=== PATIENT | male | born 1945 | race African-American/Black ===

== ENCOUNTER 2017-07-18 15:00 | Inpatient (IN) | payer MEDICARE, MEDICAID ==
[~2017-07-18] VITALS: Ht 177.8 cm; Wt 65.8 kg
[2017-07-18 16:08] LABS: BASOPHILS % 0.1 % (0.0-2.0); EOSINOPHILS % 0.1 % (0.0-5.0); HEMATOCRIT. 42.8 % (42.0-52.0); HEMOGLOBIN. 14.2 g/dL (14.0-18.0); LYMPHOCYTES % 26.2 % (20.0-50.0); MEAN CORPUSCULAR HEMOGLOBIN 29.7 pg (28.0-32.0); MEAN CORPUSCULAR VOLUME 89.5 fL (80.0-94.0); MEAN PLATELET VOLUME 7.5 fl (7.4-10.4); MONOCYTES % 19.2 % (2.0-8.0); NEUTROPHILS % 54.4 % (40.0-76.0); PLATELET 178 x1000/uL (130-400); RED BLOOD CELL COUNT 4.78 mill/uL (4.7-6.1); RED CELL DISTRIBUTION WIDTH 14.5 % (11.6-14.6)
[2017-07-18 16:26] LABS: CARBON DIOXIDE 30 mEq/L (21-32); CHLORIDE 102 mEq/L (98-107); ETHANOL BLOOD < 10 mg/dL; TROPONIN I 0.02 ng/mL (0.00-0.04)
[2017-07-18 17:48] LABS: CLARITY URINE CLEAR (CLEAR); COLOR URINE YELLOW (YELLOW); KETONES URINE NEGATIVE (NEGATIVE); LEUKOCYTE ESTERASE URINE NEGATIVE (NEGATIVE); NITRITE URINE NEGATIVE (NEGATIVE); OCCULT BLOOD URINE TRACE (NEGATIVE); PH URINE 5.5 (4.5-8.0); PROTEIN URINE 1+ (NEGATIVE); SPECIFIC GRAVITY URINE 1.019 (1.005-1.030)
[2017-07-18 18:31] LABS: *AMPHETAMINES SCREEN URINE NEGATIVE (NEGATIVE); *BARBITURATES SCREEN URINE NEGATIVE (NEGATIVE); *BENZODIAZEPINES SCREEN URINE NEGATIVE (NEGATIVE); *COCAINE SCREEN URINE NEGATIVE (NEGATIVE); CANNABINOID URINE SCREEN NEGATIVE (NEGATIVE); METHADONE URINE SCREEN NEGATIVE (NEGATIVE); OPIATES URINE SCREEN NEGATIVE (NEGATIVE); PHENCYCLIDINE URINE SCREEN NEGATIVE (NEGATIVE)
[2017-07-18] MEDS ORDERED: AZITHROMYCIN 500 MG in DEXT 5% WATER 250 ML IV SCH (20:00)
[2017-07-18] MEDS ORDERED: CEFTRIAXONE 1 G PREMIX 50 ML IV ONE (20:00)
[2017-07-18] MEDS ORDERED: HYDROCODONE/ACETAMINOPHEN 5/325MG TABLET PO PRN (20:30)
[2017-07-18] MEDS ORDERED: ONDANSETRON HCL 4MG/2ML VIAL IV PRN (20:30)
[2017-07-18] MEDS ORDERED: LORAZEPAM 0.5MG TABLET PO PRN (20:30)
[2017-07-18] MEDS ORDERED: DIPHENHYDRAMINE 50MG/ML VIAL IV PRN (20:30)
[2017-07-18] MEDS ORDERED: GUAIFENESIN 200MG/10ML SUGAR FREE UDC PO PRN (20:30)
[2017-07-18] MEDS ORDERED: IPRATROPIUM/ALBUTEROL 0.5-3(2.5)MG/3ML NEB INH PRN (20:30)
[2017-07-18] MEDS ORDERED: DOCUSATE SODIUM 100MG CAPSULE PO PRN (20:30)
[2017-07-18] MEDS ORDERED: ACETAMINOPHEN 325MG TABLET PO PRN (20:30)
[2017-07-18] MEDS ORDERED: MAGNESIUM/ALUMINUM HYDROXIDE/SIMETHICONE 30ML UDC PO PRN (20:30)
[2017-07-18] MEDS ORDERED: CLONIDINE 0.1MG TABLET PO PRN (20:30)
[2017-07-18 21:01] LABS: CHLORIDE 103 mEq/L (98-107)
[2017-07-18 21:07] LABS: CARBON DIOXIDE 29 mEq/L (21-32)
[2017-07-18] MEDS ORDERED: NA PHOS,M-B/NA PHOS,DI-BA ENEMA 118ML PR PRN (23:00)
[2017-07-18] MEDS ORDERED: HYDROMORPHONE HCL/PF 2MG/ML CPJ IV PRN (23:00)
[2017-07-19] MEDS ORDERED: CEFTRIAXONE 1 G PREMIX 50 ML IV SCH (04:00)
[2017-07-19] MEDS: SODIUM CHLORIDE 0.45% 1,000 ML IV SCH (04:03)
[2017-07-19] MEDS ORDERED: AZITHROMYCIN 500 MG in DEXT 5% WATER 250 ML IV SCH (05:00)
[2017-07-19 05:21] LABS: HEMOGLOBIN. 14.1 g/dL (14.0-18.0); MEAN CORPUSCULAR HEMOGLOBIN 30.7 pg (28.0-32.0); MEAN CORPUSCULAR VOLUME 89.5 fL (80.0-94.0); MEAN PLATELET VOLUME 7.6 fl (7.4-10.4); PLATELET 169 x1000/uL (130-400); RED BLOOD CELL COUNT 4.59 mill/uL (4.7-6.1)
[2017-07-19 05:23] LABS: CARBON DIOXIDE 32 mEq/L (21-32); HDL CHOLESTEROL 25 mg/dL (40-59); LDL CHOLESTEROL 71 mg/dL (5-100)
[2017-07-19 05:40] LABS: CHLORIDE 103 mEq/L (98-107)
[2017-07-19 08:20] LABS: PLATELET ESTIMATE NORMAL
[2017-07-19 11:28] VITALS: BP 125/73
[2017-07-19] MEDS: ASPIRIN 81MG EC TABLET PO SCH (11:46)
[2017-07-19 12:00] VITALS: BP 139/76
[2017-07-19] MEDS ORDERED: INFLUENZA VIRUS VACCINE 0.5ML SYR IM ONE (13:00)
[2017-07-19] MEDS ORDERED: PNEUMOCOCCAL 23-VAL P-SAC VAC 0.5 ML IM ONE (13:00)
[2017-07-19] MEDS ORDERED: ASPI-1159 PO (13:22)
[2017-07-19] MEDS ORDERED: ENAL20TA PO (13:41)
[2017-07-19] MEDS ORDERED: OLAN10TA19 PO (13:41)
[2017-07-19] MEDS ORDERED: HALO5TAB PO (13:41)
[2017-07-19 16:00] VITALS: BP 116/66
[2017-07-19] MEDS ORDERED: HALOPERIDOL 5MG TABLET PO SCH (17:00)
[2017-07-19] MEDS: HALOPERIDOL 5MG TABLET PO SCH (17:50)
[2017-07-19] MEDS: OLANZAPINE 10MG TABLET PO SCH (17:50)
[2017-07-19 20:00] VITALS: BP 135/82
[2017-07-20] VITALS: BP 135/79
[2017-07-20] MEDS: SODIUM CHLORIDE 0.45% 1,000 ML IV SCH (00:21)
[2017-07-20 04:00] VITALS: BP 106/62
[2017-07-20] MEDS ORDERED: AZITHROMYCIN 500 MG in DEXT 5% WATER 250 ML IV SCH (05:00)
[2017-07-20 07:42] VITALS: BP 117/71
[2017-07-20] MEDS: HALOPERIDOL 5MG TABLET PO SCH (08:45)
[2017-07-20] MEDS: OLANZAPINE 10MG TABLET PO SCH (08:45)
[2017-07-20] MEDS: ASPIRIN 81MG EC TABLET PO SCH (08:46)
[2017-07-20] MEDS ORDERED: MEDICATION NOT ON FORMULARY EA (Enalapril Maleate 1 TAB) PO SCH (09:00)
[2017-07-20] MEDS ORDERED: ASPIRIN 81MG EC TABLET PO SCH (09:00)
[2017-07-20] MEDS ORDERED: ENALAPRIL 10MG TABLET PO SCH (09:00)
[2017-07-20] MEDS ORDERED: ENOXAPARIN 40MG/0.4ML SYR SUBCUT SCH (11:00)
[2017-07-20 12:00] VITALS: BP 110/60
[2017-07-20 15:47] VITALS: BP 134/76
[2017-07-20 15:53] VITALS: BP 134/76
== END 2017-07-20 17:05 | disposition home or self-care (01) | DRG 177 ==
LOC: ER 15:31 → 8WST 21:53 → ENRESERV 07-19 07:00
PROVIDERS: ADMIT Internal Medicine; ATTEND Internal Medicine
DX: J69.0 Pneumonitis due to inhalation of food and vomit (principal); G93.41 Metabolic encephalopathy; E46 Unspecified protein-calorie malnutrition; E11.9 Type 2 diabetes mellitus without complications; R65.10 Systemic inflammatory response syndrome (SIRS) of non-infectious origin without acute organ dysfunction; E86.0 Dehydration; F17.200 Nicotine dependence, unspecified, uncomplicated; I10 Essential (primary) hypertension; Z79.82 Long term (current) use of aspirin; Z79.899 Other long term (current) drug therapy; Z86.73 Personal history of transient ischemic attack (TIA), and cerebral infarction without residual deficits; Z68.20 Body mass index [BMI] 20.0-20.9, adult
CPT/HCPCS: 36415; 70450; 71010; 80048; 80053; 80061; 80305; 81001; 82962; 83880; 84443; 84484; 85025; 86850; 86900; 87040; 90686; 90732; 97162; 99285; G0482; J0456; J0696; J1630; J1650; J7060

== ENCOUNTER 2023-02-21 12:49 | Emergency (ER) | payer MEDICARE, MEDICAID ==
[~2023-02-21] VITALS: Ht 175.3 cm; Wt 77.0 kg
[~2023-02-21 12:49] MED LIST: ALBU6.7H3 INH; AMLO5TAB88 PO; ASPI-1497 PO; ENAL-79 PO; FURO40TA5 PO; HALO5TAB PO; LIP40 PO; NITR100C11 PO; OLAN10TA72 PO; SPIR25TA PO
[2023-02-21 12:51] VITALS: O2SAT 100
[2023-02-21] MEDS ORDERED: ACETAMINOPHEN 325MG TABLET PO STA (13:53)
[2023-02-21] MEDS ORDERED: FUROSEMIDE 40MG TABLET PO ONE (14:15)
[2023-02-21 14:36] LABS: BASOPHILS % 0.2 % (0.0-2.0); EOSINOPHILS % 1.7 % (0.0-5.0); HEMATOCRIT. 31.9 % (42.0-52.0); HEMOGLOBIN. 10.2 g/dL (14.0-18.0); LYMPHOCYTES % 8.8 % (20.0-50.0); MEAN CORPUSCULAR VOLUME 81.4 fL (80.0-94.0); MEAN PLATELET VOLUME 6.9 fl (7.4-10.4); MONOCYTES % 12.2 % (2.0-8.0); NEUTROPHILS % 77.1 % (40.0-76.0); PLATELET 274 x1000/uL (130-400); RED BLOOD CELL COUNT 3.92 mill/uL (4.7-6.1); RED CELL DISTRIBUTION WIDTH 14.9 % (11.6-14.6)
[2023-02-21 14:41] LABS: CHLORIDE 97 mEq/L (98-107)
[2023-02-21 17:35] VITALS: TEMP 98.8
[2023-02-21 18:00] VITALS: BP 138/70; PULSE 80; RESP 20
== END 2023-02-21 19:03 | disposition home or self-care (01) ==
LOC: ER 12:49
DX: R07.89 Other chest pain (principal); I11.0 Hypertensive heart disease with heart failure; I50.9 Heart failure, unspecified; J44.9 Chronic obstructive pulmonary disease, unspecified; E11.9 Type 2 diabetes mellitus without complications; F12.10 Cannabis abuse, uncomplicated; Z79.899 Other long term (current) drug therapy
CPT/HCPCS: 36415; 71045; 80053; 84484; 85025; 93005; 99285

== ENCOUNTER 2023-03-03 00:25 | Inpatient (IN) | payer MEDICARE, MEDICAID ==
[~2023-03-03] VITALS: Ht 177.8 cm; Wt 56.2 kg
[2023-03-03 01:56] LABS: BASOPHILS % 0.8 % (0.0-2.0); EOSINOPHILS % 1.9 % (0.0-5.0); HEMATOCRIT. 37.6 % (42.0-52.0); HEMOGLOBIN. 12.1 g/dL (14.0-18.0); LYMPHOCYTES % 17.4 % (20.0-50.0); MEAN CORPUSCULAR HEMOGLOBIN 25.9 pg (28.0-32.0); MEAN CORPUSCULAR VOLUME 80.8 fL (80.0-94.0); MEAN PLATELET VOLUME 7.3 fl (7.4-10.4); MONOCYTES % 9.6 % (2.0-8.0); NEUTROPHILS % 70.3 % (40.0-76.0); PLATELET 296 x1000/uL (130-400); RED BLOOD CELL COUNT 4.66 mill/uL (4.7-6.1); RED CELL DISTRIBUTION WIDTH 15.9 % (11.6-14.6)
[2023-03-03 02:10] LABS: CHLORIDE 94 mEq/L (98-107)
[2023-03-03] MEDS ORDERED: HYDROCODONE/ACETAMINOPHEN 5/325MG TABLET PO PRN (05:30)
[2023-03-03] MEDS ORDERED: MAGNESIUM/ALUMINUM HYDROXIDE/SIMETHICONE 30ML UDC PO PRN (05:30)
[2023-03-03] MEDS ORDERED: ONDANSETRON HCL 4MG/2ML INJ IV PRN (05:30)
[2023-03-03] MEDS ORDERED: CLONIDINE 0.1MG TABLET PO PRN (05:30)
[2023-03-03] MEDS ORDERED: IPRATROPIUM/ALBUTEROL 0.5-3(2.5)MG/3ML NEB HHN PRN (05:30)
[2023-03-03] MEDS ORDERED: DOCUSATE SODIUM 100MG CAPSULE PO PRN (05:30)
[2023-03-03] MEDS ORDERED: GUAIFENESIN 200MG/10ML SUGAR FREE UDC PO PRN (05:30)
[2023-03-03] MEDS ORDERED: ACETAMINOPHEN 325MG TABLET PO PRN (05:30)
[2023-03-03] MEDS ORDERED: NA PHOS,M-B/NA PHOS,DI-BA ENEMA 118ML PR PRN (05:30)
[2023-03-03] MEDS ORDERED: HALOPERIDOL LACTATE 5MG/ML VIAL IM PRN (05:45)
[2023-03-03] MEDS ORDERED: NITROGLYCERIN 0.4MG TABLET SL SL PRN (06:15)
[2023-03-03] MEDS: SODIUM CHLORIDE 0.9% 1,000 ML IV SCH ×3 (06:42→21:05)
[2023-03-03 06:56] LABS: T4 FREE 1.05 ng/dL (0.76-1.46)
[2023-03-03 07:37] LABS: VITAMIN B12 SERUM 482 pg/mL (211-911)
[2023-03-03 07:54] LABS: HEPATITIS B SURFACE ANTIGEN NEGATIVE
[2023-03-03] MEDS: PANTOPRAZOLE 40MG DR TABLET PO SCH (08:41)
[2023-03-03 08:55] LABS: CLARITY URINE CLOUDY (CLEAR); COLOR URINE YELLOW (YELLOW); KETONES URINE NEGATIVE (NEGATIVE); LEUKOCYTE ESTERASE URINE NEGATIVE (NEGATIVE); NITRITE URINE NEGATIVE (NEGATIVE); OCCULT BLOOD URINE NEGATIVE (NEGATIVE); PROTEIN URINE NEGATIVE (NEGATIVE); SPECIFIC GRAVITY URINE 1.008 (1.005-1.030); UROBILINOGEN URINE 0.2 E.U./dL (0.2-1.0)
[2023-03-03] MEDS: ASPIRIN 81MG EC TABLET PO SCH (10:46)
[2023-03-03] MEDS: OLANZAPINE 10MG TABLET PO SCH (10:46)
[2023-03-03 11:08] VITALS: BP 120/59; PULSE 92; RESP 18; TEMP 97.7
[2023-03-03 12:00] VITALS: BP 120/59; PULSE 92; RESP 18; TEMP 97.7
[2023-03-03] MEDS: ENOXAPARIN 30MG/0.3ML SYR SUBCUT SCH (12:44)
[2023-03-03 13:20] LABS: *AMPHETAMINES SCREEN URINE NEGATIVE (NEGATIVE); *BARBITURATES SCREEN URINE NEGATIVE (NEGATIVE); *BENZODIAZEPINES SCREEN URINE NEGATIVE (NEGATIVE); *COCAINE SCREEN URINE NEGATIVE (NEGATIVE); CANNABINOID URINE SCREEN NEGATIVE (NEGATIVE); METHADONE URINE SCREEN NEGATIVE (NEGATIVE); OPIATES URINE SCREEN NEGATIVE (NEGATIVE); PHENCYCLIDINE URINE SCREEN NEGATIVE (NEGATIVE)
[2023-03-03 15:31] LABS: CLARITY URINE CLEAR (CLEAR); COLOR URINE YELLOW (YELLOW); KETONES URINE NEGATIVE (NEGATIVE); LEUKOCYTE ESTERASE URINE NEGATIVE (NEGATIVE); NITRITE URINE NEGATIVE (NEGATIVE); OCCULT BLOOD URINE NEGATIVE (NEGATIVE); PH URINE 6.5 (4.5-8.0); PROTEIN URINE NEGATIVE (NEGATIVE); SPECIFIC GRAVITY URINE 1.009 (1.005-1.030); UROBILINOGEN URINE 0.2 E.U./dL (0.2-1.0)
[2023-03-03 20:00] VITALS: BP 122/72; PULSE 89; RESP 20; TEMP 97.4
[2023-03-03] MEDS: ATORVASTATIN CALCIUM 40MG TABLET PO SCH (21:04)
[2023-03-04] VITALS: BP 124/72; PULSE 82; RESP 20; TEMP 98
[2023-03-04] MEDS: SODIUM CHLORIDE 0.9% 1,000 ML IV SCH (03:42)
[2023-03-04 04:00] VITALS: BP 92/50; PULSE 89; RESP 20; TEMP 97.7
[2023-03-04] MEDS: PANTOPRAZOLE 40MG DR TABLET PO SCH ×2 (06:17→06:20)
[2023-03-04 06:57] LABS: HEMATOCRIT 30.9 % (42.0-52.0); HEMOGLOBIN 10.3 g/dL (14.0-18.0); MEAN CORPUSCULAR HEMOGLOBIN 26.8 pg (28.0-32.0); MEAN CORPUSCULAR VOLUME 80.7 fL (80.0-94.0); PLATELET 236 x1000/uL (130-400); RED BLOOD CELL COUNT 3.83 mill/uL (4.7-6.1); RED CELL DISTRIBUTION WIDTH 15.8 % (11.6-14.6)
[2023-03-04 08:00] VITALS: BP 112/66; PULSE 89; RESP 18; TEMP 98.5
[2023-03-04] MEDS: ASPIRIN 81MG EC TABLET PO SCH (09:24)
[2023-03-04] MEDS: OLANZAPINE 10MG TABLET PO SCH (09:24)
[2023-03-04] MEDS: ENOXAPARIN 30MG/0.3ML SYR SUBCUT SCH (11:48)
[2023-03-04 12:00] VITALS: BP 96/59; PULSE 90; RESP 18; TEMP 98.1
[2023-03-04 16:00] VITALS: BP 109/63; PULSE 92; RESP 18; TEMP 97.9
[2023-03-04] MEDS ORDERED: NALOXONE HCL 0.4MG/ML VIAL IV PRN (20:30)
[2023-03-04 20:45] VITALS: BP 114/62; PULSE 86; RESP 18; TEMP 99.1
[2023-03-04] MEDS: ATORVASTATIN CALCIUM 40MG TABLET PO SCH (21:00)
[2023-03-05 00:31] VITALS: BP 116/65; PULSE 89; RESP 18; TEMP 97.9
[2023-03-05 04:31] VITALS: BP 108/50; PULSE 86; RESP 18; TEMP 98.7
[2023-03-05] MEDS: SODIUM CHLORIDE 0.9% 1,000 ML IV SCH (04:47)
[2023-03-05 08:00] VITALS: BP 122/62; PULSE 79; RESP 18; TEMP 97.6
[2023-03-05] MEDS: PANTOPRAZOLE 40MG DR TABLET PO SCH (08:54)
[2023-03-05] MEDS: ASPIRIN 81MG EC TABLET PO SCH (08:54)
[2023-03-05] MEDS: OLANZAPINE 10MG TABLET PO SCH (08:55)
[2023-03-05 11:27] VITALS: BP 122/62; PULSE 79; TEMP 97.7; O2SAT 97
[2023-03-05 12:00] VITALS: BP 119/64; PULSE 76; RESP 20; TEMP 97.7
== END 2023-03-05 16:25 | disposition home or self-care (01) | DRG 311 ==
LOC: ER 00:25 → 8WST 06:47 → 6EST 03-05 05:28
PROVIDERS: ADMIT Hospitalist; ATTEND Hospitalist
DX: I20.8 Other forms of angina pectoris (principal); I13.0 Hypertensive heart and chronic kidney disease with heart failure and stage 1 through stage 4 chronic kidney disease, or unspecified chronic kidney disease; E87.1 Hypo-osmolality and hyponatremia; N17.9 Acute kidney failure, unspecified; I50.22 Chronic systolic (congestive) heart failure; F31.89 Other bipolar disorder; E78.5 Hyperlipidemia, unspecified; R06.03 Acute respiratory distress; E87.8 Other disorders of electrolyte and fluid balance, not elsewhere classified; D63.8 Anemia in other chronic diseases classified elsewhere; E11.22 Type 2 diabetes mellitus with diabetic chronic kidney disease; E03.8 Other specified hypothyroidism; F17.210 Nicotine dependence, cigarettes, uncomplicated; B19.20 Unspecified viral hepatitis C without hepatic coma; J44.9 Chronic obstructive pulmonary disease, unspecified; F20.9 Schizophrenia, unspecified; N18.9 Chronic kidney disease, unspecified; E86.0 Dehydration; N28.1 Cyst of kidney, acquired; D72.829 Elevated white blood cell count, unspecified; Z79.82 Long term (current) use of aspirin; Z79.899 Other long term (current) drug therapy; Z90.49 Acquired absence of other specified parts of digestive tract
CPT/HCPCS: 36415; 71045; 76700; 80048; 80053; 80061; 80305; 81003; 82570; 82607; 82746; 82962; 83036; 83605; 83735; 83880; 84100; 84300; 84439; 84443; 84484; 85025; 85027; 85379; 86705; 86709; 86803; 87340; 87389; 93005; 93970; 97161; 99285; J1650

== ENCOUNTER 2023-11-18 12:20 | Emergency (ER) | payer MEDICARE, MEDICAID ==
[~2023-11-18] VITALS: Ht 177.8 cm; Wt 73.0 kg
[~2023-11-18 12:20] MED LIST changes: -NITR100C11 PO
[2023-11-18 12:22] VITALS: O2SAT 100
[2023-11-18] MEDS ORDERED: METHYLPREDNISOLONE SOD SUCC 125MG/2ML (ACT-O-VIAL) IV STA (12:26)
[2023-11-18] MEDS ORDERED: IPRATROPIUM BROMIDE (0.02%) 0.5MG/2.5ML NEB HHN STA (12:26)
[2023-11-18] MEDS ORDERED: ALBUTEROL (0.083%) 2.5MG/3ML NEB HHN SCH (12:30)
[2023-11-18 12:59] VITALS: BP 134/73; PULSE 92; RESP 14; TEMP 98.3
[2023-11-18 13:16] LABS: BASOPHILS % 0.5 % (0.0-2.0); DIFFERENTIAL COMMENT 0; EOSINOPHILS % 5.3 % (0.0-5.0); HEMATOCRIT. 36.2 % (42.0-52.0); LYMPHOCYTES % 21.5 % (20.0-50.0); MEAN CORPUSCULAR HGB CONC 30.4 g/dL (31.0-37.0); MEAN CORPUSCULAR VOLUME 75.7 fL (80.0-94.0); MEAN PLATELET VOLUME 7.3 fl (7.4-10.4); MONOCYTES % 14.2 % (2.0-8.0); NEUTROPHILS % 58.5 % (40.0-76.0); PLATELET 263 x1000/uL (130-400); RED BLOOD CELL COUNT 4.79 mill/uL (4.7-6.1); RED CELL DISTRIBUTION WIDTH 20.3 % (11.6-14.6); WHITE BLOOD COUNT 8.2 x1000/uL (4.5-11.0)
[2023-11-18 13:31] LABS: ALANINE AMINOTRANSFERASE < 7 IU/L (10-49); ALBUMIN 4.1 g/dL (3.2-4.8); ASPARTATE AMINOTRANSFERASE 13 IU/L (<34); BILIRUBIN TOTAL 0.4 mg/dL (0.1-1.0); CARBON DIOXIDE 32 mEq/L (21-32); CHLORIDE 102 mEq/L (98-107); CREATININE 1.7 mg/dL (0.6-1.3); GLUCOSE 100 mg/dL (70-105); POTASSIUM 4.7 mEq/L (3.5-5.1); PROTEIN TOTAL 7.5 g/dL (6.0-8.3); SODIUM 137 mEq/L (136-145); TROPONIN I HIGH SENSITIVITY 10 ng/L (3.0-53); UREA NITROGEN BLOOD 20 mg/dL (9-23)
[2023-11-18] MEDS ORDERED: ALBU6.7H15 INH (18:53)
[2023-11-18] MEDS ORDERED: P50 MT (18:53)
== END 2023-11-18 13:29 | disposition left against medical advice (07) ==
LOC: ER 12:20
DX: J44.9 Chronic obstructive pulmonary disease, unspecified (principal); I11.0 Hypertensive heart disease with heart failure; I50.9 Heart failure, unspecified; E11.9 Type 2 diabetes mellitus without complications; F12.90 Cannabis use, unspecified, uncomplicated
CPT/HCPCS: 36415; 71045; 80053; 84484; 85025; 93005; 99285

== ENCOUNTER 2023-11-18 18:22 | Emergency (ER) | payer MEDICARE, MEDICAID ==
[~2023-11-18] VITALS: Ht 180.3 cm; Wt 68.0 kg
[2023-11-18 18:39] VITALS: O2SAT 95
[2023-11-18] MEDS ORDERED: ALBU6.7H15 INH (18:53)
[2023-11-18] MEDS ORDERED: P50 MT (18:53)
[2023-11-18 22:06] VITALS: PULSE 89; RESP 18; TEMP 98.6
== END 2023-11-18 22:18 ==
LOC: ER 18:22
DX: J45.901 Unspecified asthma with (acute) exacerbation (principal); E11.9 Type 2 diabetes mellitus without complications; I11.0 Hypertensive heart disease with heart failure; I50.9 Heart failure, unspecified; F12.90 Cannabis use, unspecified, uncomplicated
CPT/HCPCS: 99283